=== PATIENT | male | born 1980 | race African-American/Black ===

== ENCOUNTER → 2019-12-04 | Emergency (ER) | payer OTHER ==
[~2019-12-04] VITALS: Ht 172.7 cm; Wt 74.8 kg
[~2019-12-04] MED LIST: KETO10TA2 PO
== END | disposition home or self-care (01) ==
LOC: ER 01:40
DX: S13.4XXA Sprain of ligaments of cervical spine, initial encounter (principal); V49.9XXA Car occupant (driver) (passenger) injured in unspecified traffic accident, initial encounter; Y93.89 Activity, other specified; Y92.488 Other paved roadways as the place of occurrence of the external cause; Y99.8 Other external cause status

== ENCOUNTER 2020-08-20 16:19 | Emergency (ER) | payer OTHER ==
[~2020-08-20] VITALS: Ht 172.7 cm; Wt 74.8 kg
== END 2020-08-20 18:39 | disposition home or self-care (01) ==
LOC: ER 16:19
DX: T15.02XA Foreign body in cornea, left eye, initial encounter (principal); W45.8XXA Other foreign body or object entering through skin, initial encounter; Y93.89 Activity, other specified; Y92.89 Other specified places as the place of occurrence of the external cause; Y99.8 Other external cause status

== ENCOUNTER 2022-04-04 16:25 | Emergency (ER) | payer OTHER ==
[~2022-04-04] VITALS: Ht 172.7 cm; Wt 72.6 kg
== END 2022-04-04 18:22 | disposition home or self-care (01) ==
LOC: ER 16:25
DX: R51.9 Headache, unspecified (principal)

== ENCOUNTER 2022-06-06 10:52 | Emergency (ER) | payer OTHER ==
[~2022-06-06] VITALS: Ht 172.7 cm; Wt 72.6 kg
== END 2022-06-06 16:06 | disposition home or self-care (01) ==
LOC: ER 10:52
DX: A05.9 Bacterial foodborne intoxication, unspecified (principal)

== ENCOUNTER 2022-06-11 18:48 | Emergency (ER) | payer OTHER ==
[~2022-06-11] VITALS: Ht 172.7 cm; Wt 68.0 kg
[2022-06-11] MEDS ORDERED: PEPCID AC20 MG PO (23:24)
[2022-06-11] MEDS ORDERED: ZOFRAN8 MG PO (23:24)
== END 2022-06-11 23:31 | disposition home or self-care (01) ==
LOC: ER 18:48
DX: K52.89 Other specified noninfective gastroenteritis and colitis (principal)

== ENCOUNTER → 2022-08-18 | Emergency (ER) | payer OTHER ==
[~2022-08-18] VITALS: Ht 172.7 cm; Wt 68.0 kg
[~2022-08-18] MED LIST changes: +PEPCID AC20 MG PO; +ZOFRAN8 MG PO
== END | disposition left against medical advice (07) ==
LOC: ER 21:26
DX: Z53.21 Procedure and treatment not carried out due to patient leaving prior to being seen by health care provider (principal)

== ENCOUNTER 2022-08-24 16:20 | Emergency (ER) | payer OTHER ==
[~2022-08-24] VITALS: Ht 172.7 cm; Wt 68.0 kg
== END 2022-08-24 19:37 | disposition home or self-care (01) ==
LOC: ER 16:20
DX: J10.1 Influenza due to other identified influenza virus with other respiratory manifestations (principal); Z20.822 Contact with and (suspected) exposure to COVID-19

== ENCOUNTER 2022-09-14 05:51 | Emergency (ER) | payer OTHER ==
[~2022-09-14] VITALS: Ht 172.7 cm; Wt 73.0 kg
[2022-09-14] MEDS ORDERED: ZITHROMAX500 MG PO (08:17)
== END 2022-09-14 08:25 | disposition home or self-care (01) ==
LOC: ER 05:51
DX: J06.9 Acute upper respiratory infection, unspecified (principal)